=== PATIENT | male | born 1965 | race Caucasian/White ===

== ENCOUNTER 2018-08-17 09:14 | Outpatient (CLI) | payer OTHER ==
[~2018-08-17 09:14] MED LIST: ATACAND32 MG PO; CRESTOR10 MG PO; NIACIN; PROTONIX20 MG PO; VERELAN180 MG PO
== END 2018-08-17 09:28 | disposition home or self-care (01) ==
LOC: RAD 501 09:14
DX: R07.89 Other chest pain (principal)